=== PATIENT | female | born 1970 | race Caucasian/White ===

== ENCOUNTER 2025-06-21 08:07 | Outpatient (REF) | payer OTHER, SELFPAY ==
--- NOTE | 2025-06-21 | EMG_ITS ---
Chief complaint: Left numbness in digit 4 and 5 s/p fall Reason for referral: Left cubital tunnel G56.22 Referred by: Dr. Cormier Procedure done:Left upper extremity NCS with EMG Findings: Left median mixed distal latencies is borderline prolonged with normal motor study. Left ulnar motor study revealed moderate slowing across elbow. Impression: 1. Mild left ulnar neuropathy across elbow 2. Mild left median neuropathy across carpal tunnel [place] [id number] [facility]
== END 2025-06-21 08:08 | disposition home or self-care (01) ==
LOC: HO.NEURO 08:07
PROVIDERS: PCP Internal Medicine; Visit Provider Student in an Organized Health Care Education/Training Program
DX: G56.22 Lesion of ulnar nerve, left upper limb (principal); R20.0 Anesthesia of skin; M25.522 Pain in left elbow
CPT/HCPCS: 95886; 95910

== ENCOUNTER → 2025-06-21 08:11 | Outpatient (BNV) | payer OTHER, SELFPAY | PROVIDERS: PCP Internal Medicine; Visit Provider Psychiatry & Neurology Neurology | DX: G56.22 Lesion of ulnar nerve, left upper limb (principal) | CPT/HCPCS: 95886; 95910 ==